=== PATIENT | male | born 1955 | race Caucasian/White ===

== ENCOUNTER → 2017-06-06 11:10 | Emergency (ER) | payer SELFPAY ==
[~2017-06-06 11:10] MED LIST: Ibuprofen TAB* 400 MG PO ONE
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
[2017-06-06 16:01] VITALS: BP 140/77
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
== END | disposition home or self-care (01) ==
LOC: ED 11:10
DX: S16.1XXA Strain of muscle, fascia and tendon at neck level, initial encounter (principal); V43.52XA Car driver injured in collision with other type car in traffic accident, initial encounter; Y92.410 Unspecified street and highway as the place of occurrence of the external cause
CPT/HCPCS: 72125; A9270-GY